=== PATIENT | male | born 1990 ===

== ENCOUNTER 2017-08-07 16:04 | Emergency (ER) | payer BC ==
--- NOTE | 2017-08-07 16:11 | UC ---
Lower Extremity/Ankle HPI - HPI Summary HPI Summary: 26 yo male presents with left ankle pain. He tells me that last night he was walking his dog and inverted his LEFT ankle on an uneven pothole. Had immediate pain but was able to walk. Today had more pain with ambulation and significant swelling. Pain is mild and he has not taken anything OTC. Denies numbness/ tingling - History of Current Complaint Stated Complaint: ANKLE INJURY Time Seen by Provider: 08/07/17 16:11 Hx Obtained From: Patient Onset/Duration: Sudden Onset Severity Initially: Mild Severity Currently: Mild Pain Intensity: 2 Pain Scale Used: 0-10 Numeric Aggravating Factor(s): Standing, Ambulation Alleviating Factor(s): Elevation Able to Bear Weight: Yes - Allergies/Home Medications Allergies/Adverse Reactions: Allergies Allergy/AdvReac Type Severity Reaction Status Date / Time No Known Allergies Allergy Verified 08/07/17 16:18 Home Medications: Home Medications Ibuprofen [Advil] 600 mg PO Q8HR PRN 08/07/17 [History Confirmed 08/07/17] PMH/Surg Hx/FS Hx/Imm Hx - Additional Past Medical History Additional PMH: None Previously Healthy: Yes - Surgical History Surgical History: Unable to Obtain/Confirm Surgery Procedure, Year, and Place: middle school left forarm bone fx rods in place - Family History Known Family History: Positive: Hypertension, Diabetes, Respiratory Disease Negative: None - pt denies ITP in family hx, Cardiac Disease - Social History Occupation: Employed Full-time Lives: With Family Alcohol Use: Occasionally Substance Use Type: None Smoking Status (MU): Former Smoker - Immunization History Most Recent Influenza Vaccination: none Most Recent Tetanus Shot: unk Most Recent Pneumonia Vaccination: never Review of Systems Constitutional: Negative Skin: Negative Respiratory: Negative Cardiovascular: Negative Neurovascular: Negative Musculoskeletal: Other: - Left ankle pain Neurological: Negative Psychological: Negative All Other Systems Reviewed And Are Negative: Yes Physical Exam - Summary Physical Exam Summary: GENERAL: NAD. WDWN. No pain distress. SKIN: No rashes, sores, lesions, or open wounds. NECK: Supple. Nontender. No lymphadenopathy. CHEST: No accessory muscle use. Breathing comfortably and in no distress. CV: RRR. Without m/r/g. Pulses intact PT and DP. Brisk cap refill. MSK: LEFT ANKLE: Moderate TTP over lateral malleolus. FROM but with pain during inversion. Increased laxity during inversion. Moderate to severe edema about left ankle. Strength 5/5. Negative [place] test. NEURO: Alert. Sensations intact and symmetric B/L LEs PSYCH: Age appropriate behavior. Triage Information Reviewed: Yes Lower Extremity Course/Dx - Course Course Of Treatment: XR: IMPRESSION: Consider lateral supporting ligament injury. Suspect left lateral ligament injury. Placed in CAM boot. He has crutches at home and prefers to use these. Refer to ortho for further eval. - Differential Dx/Diagnosis Provider Diagnoses: Left ankle pain and swelling Discharge - Sign-Out/Discharge Documenting (check all that apply): Discharge/Admit/Transfer - Discharge Plan Condition: Stable Disposition: HOME Patient Education Materials: Ankle Sprain (DC) Forms: *Work Release Referrals: No Primary Care Phys,NOPCP [Primary Care Provider] - Faraz Cain MD [Medical Doctor] - As Soon As Possible Additional Instructions: If you develop a fever, shortness of breath, chest pain, new or worsening symptoms - please call your PCP or go to the ED. Your blood pressure was high at todays visit. Please see your primary provider within 4 weeks for recheck and re-evaluation. 1) May continue to take ibuprofen for pain 2) Apply ice daily 3) Use your walking boot and crutches as much as possible 4) Please call Orthopedics at the number below to schedule a follow up appointment as soon as possible - Billing Disposition and Condition Condition: STABLE Disposition: HOME
[2017-08-07 16:21] VITALS: BP 149/82
--- NOTE | 2017-08-07 16:35 | RAD ---
Indication: Lateral LEFT ankle pain and swelling following inversion injury last night. Pain with weightbearing. History of osteogenesis imperfecta. Comparison: No relevant prior exams available on the [facility] PACS for comparison. Technique: AP, mortise, and lateral views LEFT ankle. Report: Severe soft tissue swelling over the lateral malleolus and evidence for a talocrural joint effusion. Negative for fracture or malalignment. Preserved joint spaces. Bone density appears decreased throughout. IMPRESSION: Consider lateral supporting ligament injury.
== END 2017-08-07 17:00 | disposition home or self-care (01) ==
LOC: UCEAST 16:04
DX: M25.572 Pain in left ankle and joints of left foot (principal); M25.472 Effusion, left ankle; Z87.891 Personal history of nicotine dependence
CPT/HCPCS: 99211; G0463